=== PATIENT | female | born 2000 | race Caucasian/White ===

== ENCOUNTER 2022-11-15 08:52 | Emergency (ER) | payer OTHER, SELFPAY ==
[2022-11-15 08:59] VITALS: BP 115/77; PULSE 105; RESP 18; TEMP 36.5; O2SAT 94; BMI 28.3
--- NOTE | 2022-11-15 09:08 | CRLHL7_ITS ---
For Patients: As a result of the Cures Act, medical imaging exams and procedure reports are released immediately into your electronic medical record. You may view this report before your referring provider. If you have questions, please contact your health care provider. INDICATION: cough INDICATION: Cough. TECHNIQUE: Chest 2 views. COMPARISON: None FINDINGS: Cardiovascular and mediastinum: Heart size and vasculature are normal in caliber and appearance. Mediastinum is within normal limits. Lungs and pleural spaces: Lungs are clear. No sign of infiltrate or mass. No sign of pleural effusion. No pneumothorax. Bones and soft tissues: No significant findings. IMPRESSION: Lungs are clear. Dictated by Kota Kimble MD @ 11/15/2022 10:06:10 AM Dictated by: Kota Kimble MD @ 11/15/2022 10:06:16 (Electronically Signed)
--- NOTE | 2022-11-15 09:14 | ED_ITS ---
HPI - General Adult General Chief complaint: Cough Stated complaint: Cough, wheezing, trouble breathing Time Seen by Provider: 11/15/22 09:06 Source: patient Mode of arrival: ambulatory Limitations: no limitations History of Present Illness HPI narrative: 22-year-old female coming in today complaining of cough. Cough is been present for couple of months and is not getting any better. She coughs day and night, t here is no worst time. She states that she has stopped exercising because exercise would bring on fits of coughing. She feels slightly short of breath and this is worsened when she has a coughing fit. She denies fevers or chills. She was seen by her primary care provider month ago and was diagnosed with bronchitis, she states that she was not placed on any medications. She denies tobacco use. She denies vaping or smoking any other drugs. She states that between the ages of 1 and 4 she was diagnosed with asthma, has not had any issues or been on any treatment since. She has been taking daily allergy medications which do not seem to be helping. Cough is often productive of green sputum. Patient denies being . She takes no other medications. Related Data Previous Rx's Medication Instructions Recorded ipratropium 0.5 mg-albuterol 3 mg 3 ml inhalation QID PRN #90 mL 11/15/22 (2.5 mg base)/3 mL nebulization soln nebulizers #1 ea 11/15/22 prednisone 20 mg tablet 60 mg PO DAILY 4 days #12 tabs 11/15/22 Allergies Allergy/AdvReac Type Severity Reaction Status Date / Time house dust Allergy Unknown Congested Verified 11/15/22 09:07 Review of Systems Status of ROS: Reports: 10 or more systems reviewed and unremarkable except as noted in History and below [facility] Social History Smoking Status: Never smoker How often do you have a drink containing alcohol: monthly or less AUDIT-C Alcohol total score: 1 Non-prescribed substance use: denies use Exam Narrative: Exam Narrative: Well-nourished well-developed patient in no acute distress. Alert and oriented. Answers questions appropriately. Mood and affect are appropriate. Thoughts are goal oriented and rational. No tangential or magical thinking noted. Patient speaks in full sentences without needing to catch her breath. HEENT: Normocephalic atraumatic. Pupils are equally round reactive to light. Extraocular muscles are intact. Conjunctivae are moist without any icterus noted. Moist mucous membranes. Neck is soft without any lymphadenopathy or thyromegaly. No masses are appreciated. Cardiovascular: Heart is regular rate and rhythm S1 and S2 are present without any murmurs. Lungs: Diffuse wheezing bilaterally. Abdomen: Soft and nontender nondistended with normal bowel sounds. Extremities: Bilateral lower extremities are without edema. Skin: Well perfused without any obvious rashes. Const: Vital Signs, click to edit/add: Vital Signs - 24 hr 11/15/22 08:59 Temperature 97.7 F Pulse Rate [Pulse Oximeter] 105 H Respiratory Rate 18 Blood Pressure [Ri ght Upper Arm] 115/77 Pulse Oximetry 94 Oxygen Delivery Me thod Room Air Course Course Hospital Course: Patient was given oral prednisone and a DuoNeb treatment. Patient felt significantly better afterwards and a repeat examination reveals a normal lung exam, wheezing completely resolved. CBC was done-unremarkable. COVID, influenza and RSV were all negative. Chest x-ray was done, read by me, does not show any acute pathology. Vital Signs Vital signs: Initial Vital Signs Temperature 97.7 F 11/15/22 08:59 Temperature Source Temporal Artery Scan 11/15/22 08:59 Pulse Rate 105 H 11/15/22 08:59 Pulse Rhythm Regular 11/15/22 08:59 Respiratory Rate 18 11/15/22 08:59 Blood Pressure 115/77 11/15/22 08:59 Blood Pressure Mean 89 11/15/22 08:59 Blood Pressure Position Sitting 11/15/22 08:59 Pulse Oximetry 94 11/15/22 08:59 Oxygen Delivery Method Room Air 11/15/22 08:59 Vital Signs Temperature 97.7 F 11/15/22 08:59 Pulse Rate 105 H 11/15/22 08:59 Respiratory Rate 18 11/15/22 08:59 Blood Pressure 115/77 11/15/22 08:59 Pulse Oximetry 94 11/15/22 08:59 Oxygen Delivery Method Room Air 11/15/22 08:59 Temperature 97.7 F 11/15/22 08:59 Pulse Rate 105 H 11/15/22 08:59 Respiratory Rate 18 11/15/22 08:59 Blood Pressure 115/77 11/15/22 08:59 Pulse Oximetry 94 11/15/22 08:59 Oxygen Delivery Method Room Air 11/15/22 08:59 Medical Decision Making MDM Narrative Medical decision making narrative: Reactive airways with bilateral wheezing. Patient will be discharged home with prednisone and DuoNeb nebulizers. Albuterol inhaler was not prescribed given the national shortage. Lab Data Lab results reviewed: Yes I reviewed the patient's lab results Labs: Lab Results 11/15/22 Range/Units 09:28 WBC 8.68 (4.50-11.00) K/uL RBC 4.95 (4.00-5.20) m/uL Hgb 12.9 (12.0-16.0) gm/dL Hct 39.6 (33.0-51.0) % MCV 80 (80-100) fL MCH 26 (26-34) pg MCHC 33 (32-36) gm/dL RDW Coeff of Tomi 13.0 (11.5-15.5) % Plt Count 283 (140-440) K/uL Neut % (Auto) 69.6 (42.0-72.0) % Lymph % (Auto) 14.5 L (20-44) % Thayer % (Auto) 9.0 (0.0-11.0) % Eos % (Auto) 6.6 (0.0-7.0) % Baso % (Auto) 0.2 (0.0-3.0) % Neut # (Auto) 6.04 (1.7-7.0) K/uL Lymph # (Auto) 1.30 (0.90-2.90) K/uL Thayer # (Auto) 0.80 (0.00-0.90) K/UL Eos # (Auto) 0.57 H (0.00-0.50) K/uL Baso # (Auto) 0.02 (0.00-0.30) K/uL Imaging Data Chest x-ray: Attestation: I have reviewed the pertinent imaging results. Radiologist's impression: Chest 2 views. COMPARISON: None FINDINGS: Cardiovascular and mediastinum:? Heart size and vasculature are normal in caliber and appearance.? Mediastinum is within normal limits.? Lungs and pleural spaces:? Lungs are clear.? No sign of infiltrate or mass. ?No sign of pleural effusion.? No pneumothorax.? Bones and soft tissues:? No significant findings.? IMPRESSION: Lungs are clear. Discharge Plan Discharge Clinical Impression: Diffuse wheezing Patient Disposition: Home, Self-Care Condition: Improved Additional Instructions: Take all steroid as prescribed. Use your nebulizer as needed. If you are not improving over the next week follow-up with your primary care provider. Prescriptions: New prednisone 20 mg tablet 60 mg PO DAILY 4 Days Qty: 12 0RF ipratropium-albuterol 0.5 mg-3 mg(2.5 mg base)/3 mL solution for nebulization 3 ml inhalation QID PRNQty: 90 0RF (DME) nebulizers Misc See Rx Instructions .Route Qty: 1 0RF Rx Instructions: As directed Follow Up/Referrals: Tanmay Yuen MD [Referring] - Stand Alone Forms: [employer] Info Instructions
[2022-11-15] MEDS: predniSONE 20 MG TABLET 60 MG PO (09:21)
[2022-11-15] MEDS: IPRAT-ALBUT 0.5-2.5 MG/3 ML NEB 1 NEB IH (09:21)
[2022-11-15 09:35] LABS: Basophils Absolute Auto 0.02 K/uL (0.00-0.30); Basophils Percent Auto 0.2 % (0.0-3.0); Eosinophils Absolute Auto 0.57 K/uL (0.00-0.50); Eosinophils Percent Auto 6.6 % (0.0-7.0); Hematocrit 39.6 % (33.0-51.0); Hemoglobin* 12.9 gm/dL (12.0-16.0); Immature Granulocytes Abs Auto 0.01 K/uL (0.00-0.30); Immature Granulocytes Pct Auto 0.1 %; Lymphocytes Percent Auto 14.5 % (20-44); Mean Corpuscular HGB Conc 33 gm/dL (32-36); Mean Corpuscular Hemoglobin 26 pg (26-34); Mean Corpuscular Volume 80 fL (80-100); Neutrophils Absolute Auto 6.04 K/uL (1.7-7.0); Neutrophils Percent Auto 69.6 % (42.0-72.0); Platelet Count* 283 K/uL (140-440); Red Blood Count 4.95 m/uL (4.00-5.20); White Blood Count* 8.68 K/uL (4.50-11.00)
[2022-11-15 09:49] LABS: Slide Review Reflex No
[2022-11-15 10:11] LABS: PCR FLU A Negative PCR FLU A (Negative); PCR FLU B Negative PCR FLU B (Negative); PCR RSV Negative PCR RSV (Negative)
[2022-11-15 10:50] VITALS: BP 111/69; PULSE 90; RESP 18; TEMP 36.5
[2022-11-15 11:50] LABS: SARS PCR* Negative SARS-CoV-2 (Negative)
== END 2022-11-15 10:50 | disposition home or self-care (01) ==
PROVIDERS: Emergency Provider Family Medicine; PCP Physician Assistant
DX: R06.2 Wheezing (principal)
CPT/HCPCS: 36415; 71046; 85025; 87631; 94640; 99284; J7512